=== PATIENT | male | born 1990 | race Asian ===

== ENCOUNTER 2025-06-17 06:12 | Emergency (ER) | payer OTHER ==
[~2025-06-17] VITALS: Ht 177.8 cm; Wt 82.0 kg
[2025-06-17 06:16] VITALS: O2SAT 99
[2025-06-17] MEDS: ONDANSETRON HCL 4MG/2ML INJ IV ONE (08:09)
[2025-06-17] MEDS: SODIUM CHLORIDE 0.9% 1,000 ML IV ONE (08:10)
[2025-06-17 08:39] LABS: BASOPHILS % 0.5 % (0.0-2.0); EOSINOPHILS % 0.0 % (0.0-5.0); HEMATOCRIT. 38.1 % (42.0-52.0); HEMOGLOBIN. 12.8 g/dL (14.0-18.0); LYMPHOCYTES % 16.6 % (20.0-50.0); MEAN PLATELET VOLUME 6.9 fl (7.4-10.4); MONOCYTES % 3.5 % (2.0-8.0); NEUTROPHILS % 79.4 % (40.0-76.0); PLATELET 480 x1000/uL (130-400); RED BLOOD CELL COUNT 4.32 mill/uL (4.7-6.1); RED CELL DISTRIBUTION WIDTH 13.2 % (11.6-14.6)
[2025-06-17 08:54] LABS: CREATININE 0.8 mg/dL (0.6-1.3); PROTEIN TOTAL 8.0 g/dL (6.0-8.3)
[2025-06-17 08:55] LABS: ETHANOL BLOOD < 10 mg/dL (<10); UREA NITROGEN BLOOD 16 mg/dL (9-23)
[2025-06-17 08:56] LABS: ASPARTATE AMINOTRANSFERASE 16 IU/L (<34)
[2025-06-17 08:57] LABS: BILIRUBIN DIRECT < 0.1 mg/dL (<=3.0); BILIRUBIN TOTAL 0.2 mg/dL (0.1-1.0)
[2025-06-17] MEDS: KCL 20MEQ/100ML PREMIX 100 ML IV SCH (09:41)
[2025-06-17] MEDS: POTASSIUM CHLORIDE 20MEQ/PACKET PO SCH (10:34)
[2025-06-17 10:47] LABS: CLARITY URINE CLEAR (CLEAR); COLOR URINE YELLOW (YELLOW); GLUCOSE URINE TRACE (NEGATIVE); KETONES URINE TRACE (NEGATIVE); LEUKOCYTE ESTERASE URINE NEGATIVE (NEGATIVE); NITRITE URINE NEGATIVE (NEGATIVE); OCCULT BLOOD URINE NEGATIVE (NEGATIVE); PH URINE 8.0 (4.5-8.0); PROTEIN URINE 1+ (NEGATIVE); SPECIFIC GRAVITY URINE 1.032 (1.005-1.030); UROBILINOGEN URINE 1.0 E.U./dL (0.2-1.0)
[2025-06-17 10:59] LABS: MUCUS URINE 2+ /lpf (NONE/TRACE)
[2025-06-17 11:00] LABS: BACTERIA URINE NONE SEEN; RBC URINE NONE SEEN /hpf (0-2); SQUAMOUS EPITHELIAL CELL URINE RARE /lpf (RARE/1+); WBC URINE 0-2 /hpf (0-2)
[2025-06-17] MEDS: MAGNESIUM 2 G PREMIX 50 ML IV SCH (11:00)
[2025-06-17 11:19] LABS: *AMPHETAMINES SCREEN URINE NEGATIVE (NEGATIVE)
[2025-06-17 11:20] LABS: *BARBITURATES SCREEN URINE NEGATIVE (NEGATIVE); *BENZODIAZEPINES SCREEN URINE NEGATIVE (NEGATIVE); *COCAINE SCREEN URINE NEGATIVE (NEGATIVE); CANNABINOID URINE SCREEN NEGATIVE (NEGATIVE); ECSTASY MDMA SCREEN URINE CONF.TEST INDICATED (NEGATIVE); METHADONE URINE SCREEN NEGATIVE (NEGATIVE); OPIATES URINE SCREEN NEGATIVE (NEGATIVE); PHENCYCLIDINE URINE SCREEN NEGATIVE (NEGATIVE)
[2025-06-17 12:43] VITALS: BP 106/80; PULSE 99; RESP 20; TEMP 36.9; O2SAT 100
== END 2025-06-17 12:57 | disposition home or self-care (01) ==
LOC: ER 06:12 → CANBEDREQ 12:41 → ER 12:57
DX: F19.239 Other psychoactive substance dependence with withdrawal, unspecified (principal); E87.6 Hypokalemia; Z79.899 Other long term (current) drug therapy
CPT/HCPCS: 80076; 80305; 80048; 81003; 80307; 80329; 80320; 83735; 85025; 36415; 96361; 96374; 99285; J2405; J3480; J7030; Z7610 ×2; G0480